=== PATIENT | female | born 1960 | race Caucasian/White ===

== ENCOUNTER 2016-03-15 13:45 | Emergency (ER) | payer MEDICAID ==
[2016-03-15] MEDS ORDERED: ONDANSETRON 4 MG VIAL ONE (14:06)
[2016-03-15] MEDS ORDERED: TIZANIDINE 4 MG TAB PO ONE (16:40)
== END 2016-03-15 17:01 | disposition home or self-care (01) ==
LOC: ER 13:45
CPT/HCPCS: 36415; 71010; 80053; 82550; 83735; 84484; 85025; 85379; 85610; 85730; 93005; 96374

== ENCOUNTER 2016-03-17 08:31 | Emergency (ER) | payer MEDICAID ==
[2016-03-17] MEDS ORDERED: ONDANSETRON ODT 4 MG TAB ONE (09:46)
[2016-03-17] MEDS ORDERED: KCL CR 20 MEQ TAB PO ONE (10:26)
== END 2016-03-17 10:31 | disposition home or self-care (01) ==
LOC: ER 08:31
CPT/HCPCS: 36415; 36600; 71010; 80053; 82553; 82803; 83880; 84484; 85025; 85610; 85730; 93005

== ENCOUNTER 2016-03-21 14:52 | Emergency (ER) | payer MEDICAID ==
[2016-03-21] MEDS ORDERED: DILAUDID 1 MG/ML AMP ONE (21:59)
== END 2016-03-21 22:47 | disposition home or self-care (01) ==
LOC: ER 14:52
DX: S83.91XA Sprain of unspecified site of right knee, initial encounter (principal); W01.0XXA Fall on same level from slipping, tripping and stumbling without subsequent striking against object, initial encounter; Y92.009 Unspecified place in unspecified non-institutional (private) residence as the place of occurrence of the external cause; E66.9 Obesity, unspecified; F41.1 Generalized anxiety disorder; Z79.899 Other long term (current) drug therapy
CPT/HCPCS: 96372

== ENCOUNTER 2016-04-15 11:17 | Emergency (ER) | payer MEDICAID ==
[2016-04-15] MEDS ORDERED: ONDANSETRON ODT 4 MG TAB ONE (14:44)
[2016-04-15] MEDS ORDERED: ACETAMIN/BUTALB/CAFF ONE (14:44)
== END 2016-04-15 16:33 | disposition home or self-care (01) ==
LOC: ER 11:17
DX: R51 Headache (principal)